=== PATIENT | male | born 1945 | race Caucasian/White ===

== ENCOUNTER 2017-05-05 09:32 | Outpatient (RCR) | payer OTHER, MEDICAID ==
[~2017-05-05 09:32] MED LIST: HYDROCHLOROTHIA25 MG ORAL; METOPROLOL TAR100 MG ORAL; NIFEDICAL XL60 MG ORAL
== END 2017-05-16 | disposition home or self-care (01) ==
LOC: PTY 09:32
PROVIDERS: ATTEND Internal Medicine
DX: M53.3 Sacrococcygeal disorders, not elsewhere classified (principal)

== ENCOUNTER 2017-06-01 09:00 | Outpatient (RCR) | payer OTHER, MEDICAID | END 2017-06-16 | disposition home or self-care (01) | LOC: PTY 09:00 | PROVIDERS: ATTEND Internal Medicine | DX: M53.3 Sacrococcygeal disorders, not elsewhere classified (principal); M54.5 Low back pain | CPT/HCPCS: 97035; 97110; 97140; G0283 ==

== ENCOUNTER 2017-06-18 08:48 | Outpatient (RCR) | payer OTHER, MEDICAID | END 2017-07-14 | disposition home or self-care (01) | LOC: PTY 08:48 | PROVIDERS: ATTEND Internal Medicine | DX: M53.3 Sacrococcygeal disorders, not elsewhere classified (principal); M54.5 Low back pain | CPT/HCPCS: 97110; 97140; 97530; G0283 ==